=== PATIENT | male | born 1970 | race Caucasian/White ===

== ENCOUNTER 2022-06-09 15:32 | Outpatient (CLI) | payer BC, SELFPAY ==
[2022-06-09 11:14] LABS: Albumin* 4.4 g/dL (3.3-5.0)
[2022-06-09 11:15] LABS: Chloride* 108 mmol/L (96-114); Potassium* 4.4 mmol/L (3.6-5.1); Sodium* 142 mmol/L (135-149)
[2022-06-09 11:17] LABS: Bilirubin Total* 0.5 mg/dL (0.1-1.5); Carbon Dioxide* 28 mmol/L (20-32); Cholesterol* 121 mg/dL (90-199); Creatinine* 0.8 mg/dL (0.5-1.5); Estimated Glomerular Filt Rate 106 ml/min; Total Protein* 6.4 g/dL (6.0-8.3)
[2022-06-09 11:18] LABS: Alanine Aminotransferase* 55 U/L (4-50); Alkaline Phosphatase* 80 U/L (40-150); Aspartate Amino Transferase* 43 U/L (12-35); Blood Urea Nitrogen* 18 mg/dL (7-30); Glucose* 109 mg/dL (60-115); HDL Cholesterol* 53 mg/dL (>=40); LDL Cholesterol Calculated 50 mg/dL (<100); Triglycerides* 91 mg/dL (40-149)
[2022-06-09 11:47] LABS: PSA Screen* 0.25 ng/mL (0.10-4.00)
== END 2022-06-09 15:33 | disposition home or self-care (01) ==
PROVIDERS: PCP Family Medicine; Visit Provider Family Medicine
DX: Z00.00 Encounter for general adult medical examination without abnormal findings (principal); E78.00 Pure hypercholesterolemia, unspecified; Z12.5 Encounter for screening for malignant neoplasm of prostate
CPT/HCPCS: 80053; 80061; 84153

== ENCOUNTER 2022-07-29 10:55 | Outpatient (CLI) | payer BC, SELFPAY ==
[2022-07-29 15:12] LABS: Albumin* 4.5 g/dL (3.3-5.0); Chloride* 104 mmol/L (96-114); Potassium* 4.3 mmol/L (3.6-5.1); Sodium* 141 mmol/L (135-149)
[2022-07-29 15:14] LABS: Cholesterol* 101 mg/dL (90-199)
[2022-07-29 15:15] LABS: Alanine Aminotransferase* 54 U/L (4-50); Alkaline Phosphatase* 75 U/L (40-150); Aspartate Amino Transferase* 46 U/L (12-35); Bilirubin Total* 0.8 mg/dL (0.1-1.5); Blood Urea Nitrogen* 15 mg/dL (7-30); Calcium* 9.1 mg/dL (8.4-10.6); Carbon Dioxide* 30 mmol/L (20-32); Creatinine* 0.8 mg/dL (0.5-1.5); Estimated Glomerular Filt Rate 106 ml/min; Glucose* 88 mg/dL (60-115); Total Protein* 6.6 g/dL (6.0-8.3); Triglycerides* 59 mg/dL (40-149)
[2022-07-29 15:16] LABS: HDL Cholesterol* 50 mg/dL (>=40); LDL Cholesterol Calculated 39 mg/dL (<100)
[2022-07-29 15:43] LABS: PSA Screen* 0.23 ng/mL (0.10-4.00)
== END 2022-07-29 10:56 | disposition home or self-care (01) ==
LOC: NFLDREF 10:58
PROVIDERS: PCP Family Medicine; Visit Provider Family Medicine
DX: I25.10 Atherosclerotic heart disease of native coronary artery without angina pectoris (principal); Z12.5 Encounter for screening for malignant neoplasm of prostate; Z95.5 Presence of coronary angioplasty implant and graft
CPT/HCPCS: 80053; 80061; 84153

== ENCOUNTER 2022-10-03 07:45 | Outpatient (CLI) | payer BC, SELFPAY | END 2022-10-03 07:46 | disposition home or self-care (01) | LOC: RAD 07:46 | PROVIDERS: PCP Family Medicine; Visit Provider Internal Medicine | DX: I25.10 Atherosclerotic heart disease of native coronary artery without angina pectoris (principal) | CPT/HCPCS: 93308; 93321; 93325 ==

== ENCOUNTER 2023-04-30 08:06 | Outpatient (CLI) | payer BC, SELFPAY | END 2023-04-30 08:07 | disposition home or self-care (01) | LOC: NFLDREF 05-03 22:32 | PROVIDERS: PCP Family Medicine; Referring Provider Family Medicine; Visit Provider Family Medicine | DX: E78.00 Pure hypercholesterolemia, unspecified (principal); K76.0 Fatty (change of) liver, not elsewhere classified; I25.10 Atherosclerotic heart disease of native coronary artery without angina pectoris; Z12.5 Encounter for screening for malignant neoplasm of prostate | CPT/HCPCS: 80053; 80061; 84153 ==

== ENCOUNTER 2023-08-25 07:25 | Outpatient (CLI) | payer BC, SELFPAY ==
--- OUTSIDE RECORDS SUMMARY | 2023-08-25 15:36 | XMS_ITS | Clinical Summary ---
Author Name Unknown Organization [facility] Address [place], [place] [address] Care Team Providers Care [employer] Administrator Name Role Phone Judd Arce MD Primary Care Provider [phone] Allergies No known active allergies Medications Medication Sig Dispensed Refills Start Date End Date Status rosuvastatin (CRESTOR) 20 mg tablet Take 20 mg by mouth at bedtime. 0 Active aspirin chewable 81 mg chewable tablet Chew 81 mg by mouth once daily. 0 Active METOPROLOL SUCCINATE ORAL Take 25 mg by mouth once daily. 0 Active clopidogreL (PLAVIX) 75 mg tabletIndications:Card iovascular symptoms Take 1 Tablet (75 mg) by mouth once daily. 90 Tablet 3 07/23/2022 Active isosorbide mononitrate (IMDUR) 30 mg extended release tablet 24 HourIndications:Cardio vascular symptoms Take 1 Tablet (30 mg) by mouth once daily. 90 Tablet 3 07/24/2022 Active Social History Tobacco Use Types Packs/Day Years Used Date Smoking Tobacco: Never Smokeless Tobacco: Never Tobacco Cessation:Counseling Given: Not Answered Alcohol Use Standard Drinks/Week Comments Yes 0 (1 standard drink = 0.6 oz pur e alcohol) 2-3 drinks/week PHQ-2 Answer Date Recorded PHQ-2 TOTAL SCORE 1 08/06/2022 Social Connections Answer Date Recorded Frequency of Communication with Friends and Fami ly Not on file 07/11/2022 Sex and Gender Information Value Date Recorded Sex Assigned at Not on file Gender Identity Not on file Sexual Orientation Not on file Obstetrics History Last Filed Vital Signs Vital Sign Reading Time Taken Comments Blood Pressure 150/96 07/24/2022 7:46 AM [employer] Pulse 66 07/24/2022 7:46 AM [employer] Temperature 36.4 ??C (97.6 ??F) 07/24/2022 7:46 AM CS T Respiratory Rate 18 07/24/2022 7:46 AM [employer] Oxygen Saturation 98% 07/24/2022 7:46 AM [employer] Inhaled Oxygen Concentration - - Weight 87.9 kg (193 lb 11.2 oz) 07/24/2022 5:19 AM [employer] Height 180.3 cm (5' 11) 07/23/2022 11: 53 AM [employer] Body Mass Index 27.02 07/23/2022 11:53 AM [employer] Plan of Treatment Health Maintenance Due Date Last Done Comments Pneumococcal series for age 6-64 (1 of 2 - PCV) 1975 Tdap 02/03/1980 Depression screening for age 12+ 1981 HIV for age 15-65 02/03/1984 BMI (ht and wt on same day) for age 18+ 1987 Hepatitis C screening for ag e 18-79 1987 Tetanus booster 1989 Colonoscopy through age 75 2014 Lipids for age 45-75 2014 Zoster (shingles) series for age 50+ (1 of 2) 2019 COVID-19 vaccine series (2022-24 season) 2023 07/02/2022, 01/21/2022, 06/14/2021, Additional history exists Influenza for age 50-64 03/06/2023 Advance Directives Latest Code Status on File Code Status Date Activated Date Inactivated Comments Full Code 07/23/2022 2:38 PM 07/24/2022 2:31 PM Question Answer Comments Code Status Discussion: Reviewed Preferences Care Teams [employer] Administrator Relationship Specialty Start Date End Date Judd Arce MD [address] [place] [address] PCP - General Family Practice 03/18/18
== END 2023-08-25 07:26 | disposition home or self-care (01) ==
LOC: NFLDREF 15:32
PROVIDERS: PCP Family Medicine; Referring Provider Family Medicine; Visit Provider Family Medicine
DX: Z12.5 Encounter for screening for malignant neoplasm of prostate (principal); E78.00 Pure hypercholesterolemia, unspecified; I25.10 Atherosclerotic heart disease of native coronary artery without angina pectoris
CPT/HCPCS: 80053; 80061; G0103

== ENCOUNTER 2024-12-13 08:10 | Outpatient (CLI) | payer BC, SELFPAY | END 2024-12-13 08:11 | disposition home or self-care (01) | LOC: NFLDREF 12-15 12:36 | PROVIDERS: PCP Family Medicine; Referring Provider Family Medicine; Visit Provider Family Medicine | DX: K76.0 Fatty (change of) liver, not elsewhere classified (principal); E78.00 Pure hypercholesterolemia, unspecified | CPT/HCPCS: 80053; 80061; 80076 ==